=== PATIENT | female | born 1965 | race Hispanic/Latino ===

== ENCOUNTER 2017-11-19 13:05 | Outpatient (CLI) | payer BC | END 2017-11-19 13:06 | disposition home or self-care (01) | LOC: BICRAD 13:05 | PROVIDERS: ATTEND Physician Assistant | DX: R76.11 Nonspecific reaction to tuberculin skin test without active tuberculosis (principal) | CPT/HCPCS: 71046 ==

== ENCOUNTER 2020-05-08 09:30 | Outpatient (CLI) | payer BC, OTHER ==
[2020-05-08 16:17] LABS: Anion Gap 11 mmol/L (10-20); BUN (Urea Nitrogen) 10 mg/dL (9.8-20.1); Calc. Creatinine Clearance 0 mL/min (70-130); Calcium 9.3 mg/dL (7.8-10.44); Carbon Dioxide 26 mmol/L (22-29); Chloride 106 mmol/L (98-107); Estimated GFR-MDRD 79; Glucose 185 mg/dL (70-105); Hemoglobin 13.5 g/dL (12.0-16.0); INR-International Normal Ratio 0.9; Mean Corpuscular HGB CONC 33.6 g/dL (32.0-36.0); Mean Corpuscular Volume 83.2 fL (78.0-98.0); Mean Platelet Volume 12.6 fL (7.4-10.4); Platelet Count 124 thou/uL (130-400); Potassium 3.6 mmol/L (3.5-5.1); Prothrombin Time 12.6 sec (12.0-14.7); RBC Distribution Width 13.4 % (11.5-14.5); Red Blood Cell (RBC) Count 4.83 mill/uL (4.20-5.40); Sodium 139 mmol/L (136-145); White Blood Cell (WBC) Count 5.8 thou/uL (4.8-10.8)
[2020-05-08 16:18] LABS: PTT 29.9 sec (22.9-36.1)
[2020-05-09 12:24] LABS: SARS-CoV-2 MS2 Positive; SARS-CoV-2 N Gene Negative; SARS-CoV-2 S Gene Negative; SARS-CoV-2 orf1ab Negative
== END 2020-05-08 09:31 | disposition home or self-care (01) ==
LOC: LABBT 09:30
PROVIDERS: ATTEND Surgery
DX: Z01.818 Encounter for other preprocedural examination (principal); Z11.59 Encounter for screening for other viral diseases; M48.061 Spinal stenosis, lumbar region without neurogenic claudication; M51.16 Intervertebral disc disorders with radiculopathy, lumbar region
CPT/HCPCS: 80048; 85027; 85610; 85730; 87635; 93005; 93010; U0003

== ENCOUNTER 2020-05-11 05:50 | Day surgery (SDC) | payer BC ==
[2020-05-05 12:16] VITALS: BMI 28.3
[2020-05-11] MEDS ORDERED: Thrombin 5000 UNITS/5 ML VIAL ONE (06:33)
[2020-05-11] MEDS ORDERED: Fentanyl 100 MCG/2 ML VIAL ONE ×3 (06:50→11:06)
[2020-05-11] MEDS ORDERED: SUGAMMADEX SODIUM 200 MG/2 ML VIAL ONE ×2 (08:18→09:09)
[2020-05-11] MEDS ORDERED: Ondansetron HCl/PF 4 MG/2 ML Vial IVP PRN (09:33)
[2020-05-11] MEDS ORDERED: Promethazine HCl 25 MG/ML VIAL SLOW IVP PRN (09:33)
[2020-05-11] MEDS ORDERED: HYDROmorphone 2 MG/ML VIAL SLOW IVP PRN (09:33)
[2020-05-11] MEDS ORDERED: Ketorolac Tromethamine 30 MG/ML VIAL IVP PRN (09:33)
[2020-05-11] MEDS ORDERED: Promethazine HCl 25 MG/ML VIAL IM PRN (09:33)
[2020-05-11] MEDS ORDERED: Meperidine HCl/PF 25 MG/ML VIAL SLOW IVP PRN (09:33)
[2020-05-11] MEDS ORDERED: Rocuronium Bromide 10 MG/ML (10ML VIAL) ONE (11:15)
[2020-05-11] MEDS ORDERED: PROPOFOL 200 MG/20 ML VIAL ONE (11:15)
[2020-05-11] MEDS ORDERED: Ketorolac Tromethamine 30 MG/ML VIAL ONE (11:15)
[2020-05-11] MEDS ORDERED: Ondansetron PF 4 MG/2 ML Vial ONE (11:15)
[2020-05-11] MEDS ORDERED: PHENYLEPHRINE-NS 100 MCG/ML 10 ML SYRINGE ONE (11:15)
[2020-05-11] MEDS ORDERED: EPHEDRINE 25 MG/5 ML SYRINGE ONE (11:15)
[2020-05-11] MEDS ORDERED: Lidocaine 1% PF 5 ML VIAL ONE (11:15)
[2020-05-11] MEDS ORDERED: Bisacodyl 10 MG SUPP PR PRN (11:30)
[2020-05-11] MEDS ORDERED: Mag-Al 1200 mg/1200 mg/30 ML UDCUP PO PRN (11:30)
[2020-05-11] MEDS ORDERED: Ondansetron PF 4 MG/2 ML Vial IVP PRN (11:30)
[2020-05-11] MEDS ORDERED: Fleet Enema 133 ML BOT PR PRN (11:30)
[2020-05-11] MEDS ORDERED: Milk Of Magnesia 30 ML UDCUP PO PRN (11:30)
[2020-05-11] MEDS ORDERED: Acetaminophen/Codeine 30-300mg Tablet PO PRN (11:30)
[2020-05-11] MEDS ORDERED: tiZANidine HCl 4 MG TAB PO PRN (11:30)
[2020-05-11] MEDS ORDERED: diphenhydrAMINE 25 MG CAP PO PRN (11:30)
[2020-05-11] MEDS ORDERED: traMADol HCl 50 MG TAB PO PRN (11:30)
[2020-05-11] MEDS ORDERED: Acetaminophen 325 MG TAB PO PRN (11:30)
[2020-05-11] MEDS ORDERED: Morphine 2 MG/ML VIAL SLOW IVP PRN (11:30)
[2020-05-11] MEDS: Sodium Chloride 0.9% 1,000 ML IV SCH ×2 (12:35→23:51)
--- NOTE | 2020-05-11 14:10 | OP ---
DATE OF PROCEDURE: 05/11/2020 RESIDENT: Daisy Lindsay PA-C LOCATION: OR 11. Type 1 wound. PREPROCEDURE DIAGNOSIS: Left L5 and left S1 radiculopathy with left L5-S1 disk extrusion. POSTPROCEDURE DIAGNOSIS: Left L5 and left S1 radiculopathy with left L5-S1 disk extrusion. PROCEDURES: 1. Left L4-L5, left L5-S1 hemilaminotomy and foraminotomies with diskectomy left L5-S1. 2. Use of operative microscope for microdissection. DESCRIPTION OF PROCEDURE: After informed consent was obtained from the patient, the patient was brought to the OR. Proper patient, pause, and identification were carried out. She was placed under excellent general endotracheal anesthesia and positioned prone on the OR table. All appropriate points were padded. A small incision was drawn dorsally from L4-S1. This region was sterilely cleansed, prepared, and draped. Proper patient, pause, and identification were carried out. The wound was then opened with a combination of sharp, monopolar, and blunt dissection. Left L4-L5 and left L5-S1 segments were exposed. Localization film confirmed area of interest. We then performed a left L4-L5 and left L5-S1 hemilaminotomy and foraminotomies with diskectomy and removal of multiple fragments of the left L5-S1 segment. Copious irrigation occurred throughout as did maximizing hemostasis. There was no spinal fluid leak. Microscope was used for microdissection for the diskectomy. The wound was then closed in anatomic layers following sprinkling of vancomycin powder. The patient emerged from anesthesia. Job ID: [id number]
[2020-05-11] MEDS: CEFAZOLIN 2 GM in Premix Bag 1 BAG IVPB SCH ×2 (15:43→22:12)
[2020-05-11] MEDS: glipiZIDE 5 MG TAB PO SCH (20:22)
[2020-05-11] MEDS ORDERED: Pregabalin 75 MG CAP PO SCH (21:00)
[2020-05-11] MEDS ORDERED: Atorvastatin Calcium 10 MG TAB PO SCH (21:00)
[2020-05-12] MEDS: HYDROcodone/Acetaminophen 7.5/325 mg Tablet PO PRN ×3 (03:10→14:38)
[2020-05-12] MEDS ORDERED: Alogliptin 25 MG TAB PO SCH (09:00)
[2020-05-12] MEDS ORDERED: Amlodipine 10 MG TAB PO SCH (09:00)
[2020-05-12] MEDS: glipiZIDE 5 MG TAB PO SCH (09:01)
--- NOTE | 2020-05-12 10:42 | PRG ---
DATE OF SERVICE: 05/12/2020 SUBJECTIVE: Ms. Jones is postoperative day #1 from lumbar decompression diskectomy. She has had resolution in her leg pain. She has as expected incisional pain related to the operative site. She is doing well and has met criteria for discharge. We will plan for dismissal home. Went over interim postoperative questions. Job ID: [id number]
[2020-05-12 11:54] VITALS: BP 114/70; TEMP 98.2
[2020-05-12] MEDS: Sodium Chloride 0.9% 1,000 ML IV SCH (14:37)
== END 2020-05-12 15:19 | disposition home or self-care (01) ==
LOC: SDC 05:50 → SURG B 09:32 → SDC 05-12 15:19
PROVIDERS: ATTEND Surgery
PROC: 01NB0ZZ Release Lumbar Nerve, Open Approach (ICD-10-PCS; principal; 2020-05-11)
PROC: 0SB20ZZ Excision of Lumbar Vertebral Disc, Open Approach (ICD-10-PCS; principal; 2020-05-11)
DX: M51.17 Intervertebral disc disorders with radiculopathy, lumbosacral region (principal); M51.16 Intervertebral disc disorders with radiculopathy, lumbar region; M48.061 Spinal stenosis, lumbar region without neurogenic claudication; M50.10 Cervical disc disorder with radiculopathy, unspecified cervical region; M48.02 Spinal stenosis, cervical region; I10 Essential (primary) hypertension; E78.5 Hyperlipidemia, unspecified; G47.30 Sleep apnea, unspecified; Z79.84 Long term (current) use of oral hypoglycemic drugs; Z79.899 Other long term (current) drug therapy; Z91.041 Radiographic dye allergy status
CPT/HCPCS: 36416; 76000; J0690; J1885; J2405; J2704; J3010; J3370